=== PATIENT | male | born 1950 | race Caucasian/White ===

== ENCOUNTER → 2022-07-07 10:17 | Outpatient (BNVA) | payer MEDICARE, SELFPAY | PROVIDERS: Visit Provider Family Medicine Adult Medicine | DX: N40.0 Benign prostatic hyperplasia without lower urinary tract symptoms (principal); Z78.9 Other specified health status; N39.44 Nocturnal enuresis; N13.8 Other obstructive and reflux uropathy; N40.1 Benign prostatic hyperplasia with lower urinary tract symptoms; J30.9 Allergic rhinitis, unspecified | CPT/HCPCS: 80053; 84443; 85025; G0103 ==

== ENCOUNTER → 2024-04-05 09:54 | Outpatient (BNVA) | payer MEDICARE, SELFPAY | DX: N13.8 Other obstructive and reflux uropathy (principal); N40.1 Benign prostatic hyperplasia with lower urinary tract symptoms; I10 Essential (primary) hypertension; Z12.5 Encounter for screening for malignant neoplasm of prostate | CPT/HCPCS: 80053; 85025; G0103 ==